=== PATIENT | male | born 1985 | race Caucasian/White ===

== ENCOUNTER 2018-01-24 21:08 | Emergency (ER) | payer BC ==
[2018-01-24 21:19] VITALS: RESP 18
[2018-01-24] MEDS ORDERED: FAMOTIDINE 20 MG TAB PO STA (21:35)
[2018-01-24] MEDS ORDERED: predniSONE 50 MG TAB PO STA (21:35)
--- NOTE | 2018-01-24 21:46 | ED ---
Skin/Abscess/FB HPI - General Chief complaint: Skin/Abscess/Foreign Body Stated complaint: rash Time Seen by Provider: 01/24/18 21:29 Source: patient, RN notes reviewed Mode of arrival: ambulatory Limitations: no limitations - History of Present Illness Initial comments: This is a 32-year-old male who presents to the emergency department with chief complaint of rash. Patient states that he developed a rash on his right wrist in September. He states that he has been using topical moisturizers because he contributed it to dry skin. Patient states that a couple days ago he developed a rash under both of his eyes. Tonight the rash began to cover his arms and his chest. He states that he took a Benadryl prior to arrival and has been applying cortisone topically. Patient states that the rash is pruritic. Denies any new body lotions, fragrances, laundry detergents or medications. He states that she got a new pair of work gloves in September and thought that that may be the cause. Denies fever, chills, chest pain, shortness of breath, abdominal pain, nausea or vomiting, constipation or diarrhea, dysuria or hematuria, numbness or tingling, headache or vision changes. - Related Data Home Medications Medication Instructions Recorded Confirmed [id number] 1 tab PO Q4HR PRN 06/27/16 08/30/16 [Excedrin] Mylanta 10 ml PO DAILY PRN 06/29/16 08/30/16 Famotidine [Pepcid] 20 mg PO DAILY 07/29/16 08/30/16 Aspirin EC [Ecotrin Low Dose] 81 mg PO DAILY PRN 08/30/16 08/30/16 Previous Rx's Medication Instructions Recorded Famotidine [Pepcid] 20 mg PO BID #8 tablet 01/24/18 predniSONE 20 mg PO BID #8 tab 01/24/18 Allergies Allergy/AdvReac Type Severity Reaction Status Date / Time Penicillins AdvReac Nausea & Verified 01/24/18 21:19 Vomiting Review of Systems ROS Statement: Those systems with pertinent positive or pertinent negative responses have been documented in the HPI. ROS Other: All systems not noted in ROS Statement are negative. Past Medical History Past Medical History: Chest Pain / Angina, GERD/Reflux Additional Past Medical History / Comment(s): chest pain and recently diagnosed with GERD History of Any Multi-Drug Resistant Organisms: None Reported Past Surgical History: Ear Surgery Additional Past Surgical History / Comment(s): Bilateral ear tubes, nasal passage surgery (flushed) Past Anesthesia/Blood Transfusion Reactions: Motion Sickness Past Psychological History: No Psychological Hx Reported Smoking Status: Never smoker Past Alcohol Use History: Occasional Past Drug Use History: None Reported - Past Family History Mother Family Medical History: Diabetes Mellitus Father History Unknown: Yes General Exam - General Exam Comments Initial Comments: General: Awake and alert, well-developed; in no apparent distress. HEENT: Head atraumatic, normocephalic. Pupils are equal, round and reactive to light. Extraocular movements intact. Oropharynx moist without erythema or exudate. Neck: Supple. Normal ROM. Cardiovascular: Regular rate and rhythm. No murmurs, rubs or gallops. Chest symmetrical. Respiratory: Lungs clear to auscultation bilaterally. No wheezes, rales or rhonchi. Normal respiratory effort with no use of accessory muscles. Musculoskeletal: Normal ROM, no tenderness bilateral upper and lower extremities. Ambulating normally. Skin: [place], warm and dry. Dry, erythematous maculopapular lesions covering bilateral arms, chest and infraorbital area. Overlying excoriations noted to erythematous rash on right dorsal wrist. Neurological: Alert and oriented x3. CN II-XII grossly intact. Speech is fluent and answers are appropriate. No focal neuro deficits. Psychiatric: Normal mood and affect. No overt signs of depression or anxiety noted. Limitations: no limitations Course Vital Signs 01/24/18 21:16 Temperature 97.5 F L Pulse Rate 77 Respiratory 18 Rate Blood Pressure 161/94 O2 Sat by Pulse 98 Oximetry Medical Decision Making - Medical Decision Making This is a 32-year-old male who presents to the emergency department with chief complaint of rash. Patient's rash started on his right wrist in September and has recently spread to his arms, chest and under his eyes. He has been using topical cortisone cream and Benadryl. Rash appears eczematous. Patient was given a dose of prednisone and Pepcid while in the emergency department. He admits to taking a dose of Benadryl prior to arrival. Patient is in no acute distress and will be discharged home. He will be given prescriptions for prednisone and Pepcid. I educated patient to avoid long, hot showers. He may use cortisone cream but I advised against applying to the rash under eyes as steroid creams can cause stretch prado and thinning of the skin. Recommended follow-up with his primary care provider in 1-2 days. Patient is in agreement with plan and voices understanding. All questions were answered. Disposition Clinical Impression: Dermatitis Disposition: HOME SELF-CARE Condition: Good Instructions: Eczema (ED), Dermatitis (ED) Additional Instructions: Please take medications as prescribed. Please avoid long, hot showers. May apply a thick cream moisturizer. Avoid using topical steroids on the face. Please follow up with primary care provider within 1-2 days. Return to emergency department if symptoms should worsen or any concerns arise. Prescriptions: Famotidine [Pepcid] 20 mg PO BID #8 tablet predniSONE 20 mg PO BID #8 tab Referrals: None,Stated [Primary Care Provider] - 1-2 days Time of Disposition: 22:02
[2018-01-24 22:09] VITALS: BP 136/76; PULSE 76; TEMP 97.9
== END 2018-01-24 22:08 | disposition home or self-care (01) ==
LOC: EC 21:08
DX: L30.9 Dermatitis, unspecified (principal); K21.9 Gastro-esophageal reflux disease without esophagitis; Z79.899 Other long term (current) drug therapy; Z88.0 Allergy status to penicillin
CPT/HCPCS: 99282; J7512

== ENCOUNTER 2019-09-09 09:02 | Emergency (ER) | payer BC ==
[2019-09-09 09:14] VITALS: RESP 18
[2019-09-09] MEDS ORDERED: ASPIRIN 81 MG PO STA (10:01)
[2019-09-09] MEDS ORDERED: NITROGLYCERIN SL TABS 0.4 MG TAB SUBLINGUAL STA (10:01)
[2019-09-09 10:12] LABS: Basophils % (A) 1 %; Eosinophils # (A) 0.1 k/uL (0-0.7); Eosinophils % (A) 2 %; HCT 43.9 % (39.0-53.0); HGB 14.3 gm/dL (13.0-17.5); Lymphocytes # (A) 1.4 k/uL (1.0-4.8); Lymphocytes % (A) 24 %; MCH 28.2 pg (25.0-35.0); MCHC 32.5 g/dL (31.0-37.0); MCV 86.7 fL (80.0-100.0); Mean Platelet Volume 6.8; Monocytes # (A) 0.3 k/uL (0-1.0); Monocytes % (A) 5 %; Neutrophils # (A) 3.9 k/uL (1.3-7.7); Neutrophils % (A) 66 %; Platelet Count 328 k/uL (150-450); RBC 5.07 m/uL (4.30-5.90); RDW 13.6 % (11.5-15.5); WBC 5.9 k/uL (3.8-10.6)
[2019-09-09 10:24] LABS: ALT 44 U/L (21-72); AST 27 U/L (17-59); African American GFR (CKD) >90 (>60 ml/min/1.73 sqM); Albumin 4.7 g/dL (3.5-5.0); Alkaline Phosphatase 68 U/L (38-126); Anion Gap 8 mmol/L; Blood Urea Nitrogen 18 mg/dL (9-20); Calcium 9.9 mg/dL (8.4-10.2); Carbon Dioxide 27 mmol/L (22-30); Chloride 107 mmol/L (98-107); Glucose 100 mg/dL (74-99); Magnesium 2.1 mg/dL (1.6-2.3); Sodium 142 mmol/L (137-145); Total Bilirubin 0.4 mg/dL (0.2-1.3); Total Protein 7.9 g/dL (6.3-8.2)
[2019-09-09 10:27] LABS: D-Dimer 0.43 mg/L FEU (<0.60); INR 0.9 (<1.2); Partial Thromboplastin Time 22.9 sec (22.0-30.0); Prothrombin Time 9.7 sec (9.0-12.0)
--- NOTE | 2019-09-09 10:28 | XR ---
EXAMINATION TYPE: XR chest 2V DATE OF EXAM: 09/09/2019 COMPARISON: 07/29/2016 HISTORY: Chest pain TECHNIQUE: Frontal and lateral views of the chest are obtained. FINDINGS: There is no focal air space opacity, pleural effusion, or pneumothorax seen. The cardiac silhouette size is upper limits of normal, similar to the prior exam. The osseous structures are in tact. IMPRESSION: No acute cardiopulmonary process.
--- NOTE | 2019-09-09 10:46 | ED ---
Chest Pain HPI - General Chief Complaint: Chest Pain Stated Complaint: LEFT FLANK PAIN/CHEST PAIN Time Seen by Provider: 09/09/19 09:15 Source: patient Mode of arrival: ambulatory Limitations: no limitations - History of Present Illness Initial Comments: The patient is a 33-year-old male presents to the emergency room with reported chest pain for the past week. He describes it as a left-sided chest wall pain without radiation. It is painful to palpation. Denies ripping or tearing sensation to his back. No associated shortness of breath or cough. Does admit to feeling mildly nauseated without vomiting. No hemoptysis. No chest wall trauma. Denies a family history of cardiac disease. No history of DVT or PE. The patient did recently travel to [place] for his [email or web address]. States the pain was present prior to travel. Denies calf pain or swelling. Denies any fevers or chills. No recent upper respiratory infections. No neck pain. Denies back or flank pain. No pain into his lower extremities. No changes in bowel or bladder habits. There are no other alleviating, precipitating or modifying factors - Related Data Home Medications Medication Instructions Recorded Confirmed Esomeprazole Magnesium [NexIUM] 40 mg PO DAILY 09/09/19 09/09/19 Ibuprofen [Motrin Ib] 400 - 600 mg PO Q6H PRN 09/09/19 09/09/19 Allergies Allergy/AdvReac Type Severity Reaction Status Date / Time orange AdvReac Unknown Verified 09/09/19 09:55 Penicillins AdvReac Nausea & Verified 09/09/19 09:55 Vomiting Review of Systems ROS Statement: Those systems with pertinent positive or pertinent negative responses have been documented in the HPI. ROS Other: All systems not noted in ROS Statement are negative. EKG Findings - EKG Comments: EKG Findings:: EKG demonstrates normal sinus rhythm with a ventricular rate of 76. MA interval 158. QRS 102. QTC 407. There is an inverted T-wave in lead 3. J-point elevation in 1 and aVL. This compared to patient's previous EKG and appears the same. Past Medical History Past Medical History: Chest Pain / Angina, GERD/Reflux Additional Past Medical History / Comment(s): chest pain and recently diagnosed with GERD History of Any Multi-Drug Resistant Organisms: None Reported Past Surgical History: Ear Surgery Additional Past Surgical History / Comment(s): Bilateral ear tubes, nasal passage surgery (flushed) Past Anesthesia/Blood Transfusion Reactions: Motion Sickness Past Psychological History: No Psychological Hx Reported Smoking Status: Never smoker Past Alcohol Use History: Occasional Past Drug Use History: None Reported - Past Family History Mother Family Medical History: Diabetes Mellitus Father History Unknown: Yes General Exam Limitations: no limitations Course Vital Signs 09/09/19 09/09/19 09:11 11:25 Temperature 98.0 F 97.7 F Pulse Rate 73 72 Respiratory 18 18 Rate Blood Pressure 117/73 122/70 O2 Sat by Pulse 96 99 Oximetry Chest Pain MDM - MDM Upon arrival the patient was placed in room 5. A history of physical exam is performed. A 12-lead EKG was performed which demonstrated normal sinus rhythm. I did recommend laboratory studies and a chest x-ray. Laboratory studies demonstrated a d-dimer of 0.43. CBC and CMP were unremarkable troponin is negative. Chest x-ray demonstrates no acute cardiac process. I did reevaluate the patient and informed him of the results. At this time the patient will be discharged home and is to follow-up with his primary care physician. Patient does not have one and therefore I did provide him with the name of her primary care physician. I also gave him referrals to [facility]. I informed him that he will need Holter monitoring and echo with her. The patient has any new or worsening symptoms she should return to the emergency room. The patient was discharged home in stable condition Disposition Clinical Impression: Chest pain Disposition: HOME SELF-CARE Condition: Stable Instructions (If sedation given, give patient instructions): Chest Pain (ED) Additional Instructions: I recommend you follow up with the primary care physician or the [facility] office for a complete cardiac workup. You will need an ultrasound of your heart as well as Holter monitoring. Return to the emergency room for any new or worsening symptoms Is patient prescribed a controlled substance at d/c from ED?: No Referrals: None,Stated [Primary Care Provider] - 1-2 days Belinda Ott MD [Medical Doctor] - 1-2 days [facility] [Provider Group] - 1-2 days Time of Disposition: 11:12
[2019-09-09 11:28] VITALS: BP 122/70; PULSE 72; TEMP 97.7
== END 2019-09-09 11:33 | disposition home or self-care (01) ==
LOC: EC 09:02
DX: R07.89 Other chest pain (principal); R11.0 Nausea; K21.9 Gastro-esophageal reflux disease without esophagitis; I20.9 Angina pectoris, unspecified; Z79.899 Other long term (current) drug therapy; Z88.0 Allergy status to penicillin; Z91.013 Allergy to seafood
CPT/HCPCS: 36415; 71046; 80053; 83690; 83735; 83880; 84484; 85025; 85379; 85610; 85730; 99285

== ENCOUNTER → 2023-02-09 | Outpatient (CLI) | payer BC ==
--- NOTE | 2023-02-09 19:15 | CT ---
EXAMINATION TYPE: CT ankle LT wo con CT DLP: 187.1 mGycm, Automated exposure control for dose reduction was used. DATE OF EXAM: 02/09/2023 5:34 PM COMPARISON: . None CLINICAL INDICATION:Male, 37 years old with history of Q66.89 M89.8X7 M25.572; H, left ankle injury x 15 years ago. recent pain. TECHNIQUE: Axial images were obtained of the left ankle . Additional coronal and sagittal reformatte d images and soft tissue and bone window were obtained for review. 3-D reconstruction was created on a separate workstation. Contrast used: None Oral contrast used: None FINDINGS: No evidence of acute fracture. There is a prominent posterior process of the talus with sim ilar deformity of the posterior process and posterior tibial plafond small osteophyte formation. Russ tional anterior talus osteophyte with degeneration changes of the adjoining navicular as well. Additi onal scattered degeneration changes throughout the midfoot intertarsal joints. The talus and tibial p alysia and appear congruent and intact without evidence for osteochondral defect of the talar dome. N o evidence of fracture or significant soft tissue swelling. IMPRESSION: 1. Deformity of the posterior tibial plafond and posterior process of the talus correlate for pocket marker ior impingement, consider MRI for complete evaluation.. 2. Moderate osteoarthrosis changes of the joints of the foot most pronounced at the talonavicular jarad int.
== END | disposition home or self-care (01) ==
LOC: RADCTMAIN 17:09
PROVIDERS: ATTEND Podiatrist
DX: M19.072 Primary osteoarthritis, left ankle and foot (principal); Q66.89 Other specified congenital deformities of feet; M89.8X7 Other specified disorders of bone, ankle and foot; M25.572 Pain in left ankle and joints of left foot

== ENCOUNTER → 2023-09-18 | Outpatient (CLI) | payer BC ==
--- NOTE | 2023-09-18 20:31 | XR ---
EXAMINATION TYPE: XR wrist complete LT DATE OF EXAM: 09/18/2023 4:48 PM CLINICAL INDICATION:Male, 37 years old with history of M25.532 LEFT WRIST PAIN; [facility] COMPARISON: None TECHNIQUE: left wrist was examined in the. Frontal, navicular, lateral, and oblique. FINDINGS: No acute osseous pathology, joint dislocation, or joint effusion. No evidence of any soft tissue swelling is seen. IMPRESSION: No acute osseous pathology.
== END | disposition home or self-care (01) ==
LOC: RADXRMAIN 16:30
PROVIDERS: ATTEND Family Medicine
DX: M25.532 Pain in left wrist (principal)

== ENCOUNTER 2024-09-09 13:35 | Emergency (ER) | payer BC ==
[2024-09-09 13:43] VITALS: RESP 18
--- NOTE | 2024-09-09 15:05 | ED ---
General Adult HPI - General Source: patient, RN notes reviewed, old records reviewed Mode of arrival: ambulatory Limitations: no limitations <Gordon Escalante - Last Filed: 09/09/24 15:51> <Keyana Jean Baptiste - Last Filed: 09/10/24 00:45> - General Chief complaint: Abdominal Pain Stated complaint: abd pain Time Seen by Provider: 09/09/24 14:07 - History of Present Illness Initial comments: 38-year-old male presents for evaluation of right lower quadrant pain over the past several days. Patient has had poor appetite. No fever. No vomiting or diarrhea. No urinary symptoms. Patient was seen at urgent care and sent to the emergency department with concern for appendicitis. (Gordon Escalante) - Related Data Home Medications Medication Instructions Recorded Confirmed Celecoxib [CeleBREX] 200 mg PO HS 09/09/24 09/09/24 Cholecalciferol (Vitamin D3) 1,250 mcg PO TU 09/09/24 09/09/24 [Vitamin D3 (1250 Mcg = 50,000 Iu)] Esomeprazole Magnesium [NexIUM 20 mg PO DAILY 09/09/24 09/09/24 24Hr] Ferrous Sulfate [Feosol] 325 mg PO HS 09/09/24 09/09/24 Multivitamins, Thera [Multivitamin 1 tab PO HS 09/09/24 09/09/24 (formulary)] Nebivolol [Bystolic] 5 mg PO HS 09/09/24 09/09/24 Allergies Allergy/AdvReac Type Severity Reaction Status Date / Time orange AdvReac Unknown Verified 09/09/24 18:07 Penicillins AdvReac Nausea & Verified 09/09/24 18:07 Vomiting Review of Systems ROS Other: All systems not noted in ROS Statement are negative. <Gordon Escalante - Last Filed: 09/09/24 15:51> ROS Other: All systems not noted in ROS Statement are negative. <Keyana Jean Baptiste - Last Filed: 09/10/24 00:45> ROS Statement: Those systems with pertinent positive or pertinent negative responses have been documented in the HPI. Past Medical History Past Medical History: Chest Pain / Angina, GERD/Reflux Additional Past Medical History / Comment(s): chest pain and recently diagnosed with GERD History of Any Multi-Drug Resistant Organisms: None Reported Past Surgical History: Ear Surgery Additional Past Surgical History / Comment(s): Bilateral ear tubes, nasal passage surgery (flushed) Past Anesthesia/Blood Transfusion Reactions: Motion Sickness Past Psychological History: No Psychological Hx Reported Smoking Status: Never smoker Past Alcohol Use History: Occasional Past Drug Use History: None Reported - Past Family History Mother Family Medical History: Diabetes Mellitus Father History Unknown: Yes <Gordon Escalante - Last Filed: 09/09/24 15:51> General Exam Limitations: no limitations General appearance: alert, in no apparent distress Head exam: Present: atraumatic, normocephalic Eye exam: Present: normal appearance, PERRL ENT exam: Present: normal exam Neck exam: Present: normal inspection Respiratory exam: Present: normal lung sounds bilaterally. Absent: respiratory distress, wheezes Cardiovascular Exam: Present: regular rate, normal rhythm GI/Abdominal exam: Present: soft, tenderness (Right lower quadrant). Absent: distended Extremities exam: Present: normal inspection Neurological exam: Present: alert, oriented X3 Psychiatric exam: Present: normal affect, normal mood Skin exam: Present: warm, dry, intact. Absent: cyanosis, diaphoretic <Gordon Escalante - Last Filed: 09/09/24 15:51> Course Vital Signs 09/09/24 09/09/24 09/09/24 13:40 18:45 20:15 Temperature 98.4 F 98.2 F 98.0 F Pulse Rate 76 71 68 Respiratory 18 18 18 Rate Blood Pressure 145/72 129/84 151/102 O2 Sat by Pulse 99 100 100 Oximetry Medical Decision Making - Lab Data Result diagrams: 09/09/24 14:41 <Gordon Escalante - Last Filed: 09/09/24 15:51> - Lab Data Result diagrams: 09/09/24 14:41 09/09/24 16:21 <Keyana Jean Baptiste - Last Filed: 09/10/24 00:45> - Medical Decision Making Was pt. sent in by a medical professional or institution (, PA, CO FOUNDER, urgent care, hospital, or group home...) When possible be specific @ -No Did you speak to anyone other than the patient for history (EMS, parent, family, police, friend...)? What history was obtained from this source @ -No Did you review nursing and triage notes (agree or disagree)? Why? @ -I reviewed and agree with nursing and triage notes Were old charts reviewed (outside hosp., previous admission, EMS record, old EKG, old radiological studies, urgent care reports/EKG's, group home records)? Report findings @ -No old charts were reviewed Differential Abdominal Pain Men: Appendicitis, cholecystitis, diverticulosis, ischemic bowel, pancreatitis, hepatitis, UTI, gastroenteritis, AAA, incarcerated hernia, bowel obstruction, constipation, inflammatory bowel, hepatitis, peptic ulcer disease, splenic infarction, perforated viscus, testicular torsion, this is not meant to be an all-inclusive list EKG interpreted by me (3pts min.). @ -As above X-rays interpreted by me (1pt min.). @ -None done CT interpreted by me (1pt min.). @ -[CT of the pelvis has been ordered, results pending U/S interpreted by me (1pt. min.). @ -None done What testing was considered but not performed or refused? (CT, X-rays, U/S, labs)? Why? @ -None What meds were considered but not given or refused? Why? @ -None Did you discuss the management of the patient with other professionals (professionals i.e. , PA, CO FOUNDER, lab, RT, psych nurse, social work supervisor, jewel staker, teacher, optics technical officer, lead case manager)? Give summary @ -No Was smoking cessation discussed for >3mins.? @ -No Was critical care preformed (if so, how long)? @ -No Were there social determinants of health that impacted care today? How? (Homele ssness, low income, unemployed, alcoholism, drug addiction, transportation, low edu. Level, literacy, decrease access to med. care, nursing home, rehab)? @ -No Was there de-escalation of care discussed even if they declined (Discuss DNR or withdrawal of care, Hospice)? DNR status @ -No What co-morbidities impacted this encounter? (DM, HTN, Smoking, COPD, CAD, Cancer, CVA, ARF, Chemo, Hep., AIDS, mental health diagnosis, sleep apnea, morbid obesity)? @ -None Was patient admitted / discharged? Hospital course, mention meds given and route, prescriptions, significant lab abnormalities, going to OR and other pertinent info. @ -[Care signed out to Dr. Jean Baptiste at shift change awaiting CT imaging results and reevaluation. (Gordon Escalante) Was patient admitted / discharged? Hospital course, mention meds given and route, prescriptions, significant lab abnormalities, going to OR and other pertinent info. @ -Patient signed out to me pending CT. CT was performed and read as negative for acute process. Patient does have a right-sided renal stone. He does have some blood in his urine. These results are discussed with patient. At this time his pain is controlled. He will be discharged home and instructed follow- up with his primary care doctor. I do recommend urology follow-up for his renal stone. Take Tylenol and Motrin for pain. Return for any new or worsening symptoms. Patient agreeable to plan was discharged in stable condition Undiagnosed new problem with uncertain prognosis? @ -Yes Drug Therapy requiring intensive monitoring for toxicity (Heparin, Nitro, Insulin, Cardizem)? @ -[No] Were any procedures done? @ -No Diagnosis/symptom? @ -Acute right lower quadrant abdominal pain, right sided renal stone, hematuria Acute, or Chronic, or Acute on Chronic? @ -Acute Uncomplicated (without systemic symptoms) or Complicated (systemic symptoms)? @ -Complicated Side effects of treatment? @ -No Exacerbation, Progression, or Severe Exacerbation? @ -No Poses a threat to life or bodily function? How? (Chest pain, [place], [place], pneumonia, PE, COPD, DKA, ARF, appy, cholecystitis, CVA, Diverticulitis, Homicidal, Suicidal, threat to staff... and all critical care pts) @ -No (Keyana Jean Baptiste) - Lab Data Lab Results 09/09/24 09/09/24 09/09/24 Range/Units 14:41 14:41 14:41 WBC 11.1 H (3.8-10.6) k/uL RBC 5.19 (4.30-5.90) m/uL Hgb 15.4 (13.0-17.5) gm/dL Hct 45.6 (39.0-53.0) % MCV 87.8 (80.0-100.0) fL MCH 29.6 (25.0-35.0) pg MCHC 33.7 (31.0-37.0) g/dL RDW 13.7 (11.5-15.5) % Plt Count 286 (150-450) k/uL MPV 8.2 Neutrophils % 84 % Lymphocytes % 9 % Monocytes % 6 % Eosinophils % 0 % Basophils % 0 % Neutrophils # 9.3 H (1.3-7.7) k/uL Lymphocytes # 1.0 (1.0-4.8) k/uL Monocytes # 0.6 (0-1.0) k/uL Eosinophils # 0.0 (0-0.7) k/uL Basophils # 0.0 (0-0.2) k/uL PT 9.9 L (10.0-12.5) sec INR 0.9 (<1.2) APTT 20.9 L (22.0-30.0) sec Sodium (137-145) mmol/L Potassium (3.5-5.1) mmol/L Chloride (98-107) mmol/L Carbon Dioxide (22-30) mmol/L Anion Gap mmol/L BUN (9-20) mg/dL Creatinine (0.66-1.25) mg/dL Est GFR (CKD-EPI)AfAm (>60 ml/min/1.73 sqM) Est GFR (CKD-EPI)NonAf (>60 ml/min/1.73 sqM) Glucose (74-99) mg/dL Plasma Lactic Acid Yogesh 1.0 (0.7-2.0) mmol/L Calcium (8.4-10.2) mg/dL Total Bilirubin (0.2-1.3) mg/dL AST (17-59) U/L ALT (4-49) U/L Alkaline Phosphatase (38-126) U/L Total Protein (6.3-8.2) g/dL Albumin (3.5-5.0) g/dL Lipase (23-300) U/L Urine Color Urine Appearance (Clear) Urine pH (5.0-8.0) Ur Specific [place] (1.001-1.035) Urine Protein (Negative) Urine Glucose (UA) (Negative) Urine Ketones (Negative) Urine Blood (Negative) Urine Nitrite (Negative) Urine Bilirubin (Negative) Urine Urobilinogen (<2.0) mg/dL Ur Leukocyte Esterase (Negative) Urine RBC (0-5) /hpf Urine WBC (0-5) /hpf Ur Squamous Epith Cells (0-4) /hpf Hyaline Casts (0-2) /lpf Urine Mucus (None) /hpf 09/09/24 09/09/24 Range/Units 16:21 16:48 WBC (3.8-10.6) k/uL RBC (4.30-5.90) m/uL Hgb (13.0-17.5) gm/dL Hct (39.0-53.0) % MCV (80.0-100.0) fL MCH (25.0-35.0) pg MCHC (31.0-37.0) g/dL RDW (11.5-15.5) % Plt Count (150-450) k/uL MPV Neutrophils % % Lymphocytes % % Monocytes % % Eosinophils % % Basophils % % Neutrophils # (1.3-7.7) k/uL Lymphocytes # (1.0-4.8) k/uL Monocytes # (0-1.0) k/uL Eosinophils # (0-0.7) k/uL Basophils # (0-0.2) k/uL PT (10.0-12.5) sec INR (<1.2) APTT (22.0-30.0) sec Sodium 144 (137-145) mmol/L Potassium 4.9 (3.5-5.1) mmol/L Chloride 106 (98-107) mmol/L Carbon Dioxide 29 (22-30) mmol/L Anion Gap 9 mmol/L BUN 22 H (9-20) mg/dL Creatinine 0.92 (0.66-1.25) mg/dL Est GFR (CKD-EPI)AfAm >90 (>60 ml/min/1.73 sqM) Est GFR (CKD-EPI)NonAf >90 (>60 ml/min/1.73 sqM) Glucose 95 (74-99) mg/dL Plasma Lactic Acid Yogesh (0.7-2.0) mmol/L Calcium 9.9 (8.4-10.2) mg/dL Total Bilirubin 0.6 (0.2-1.3) mg/dL AST 33 (17-59) U/L ALT 39 (4-49) U/L Alkaline Phosphatase 45 (38-126) U/L Total Protein 7.4 (6.3-8.2) g/dL Albumin 4.7 (3.5-5.0) g/dL Lipase 91 (23-300) U/L Urine Color Yellow Urine Appearance Clear (Clear) Urine pH 5.0 (5.0-8.0) Ur Specific [place] 1.032 (1.001-1.035) Urine Protein Trace H (Negative) Urine Glucose (UA) Negative (Negative) Urine Ketones 1+ H (Negative) Urine Blood Small H (Negative) Urine Nitrite Negative (Negative) Urine Bilirubin Negative (Negative) Urine Urobilinogen <2.0 (<2.0) mg/dL Ur Leukocyte Esterase Negative (Negative) Urine RBC 33 H (0-5) /hpf Urine WBC 1 (0-5) /hpf Ur Squamous Epith Cells <1 (0-4) /hpf Hyaline Casts 1 (0-2) /lpf Urine Mucus Moderate H (None) /hpf Disposition <Gordon Escalante - Last Filed: 09/09/24 15:51> Is patient prescribed a controlled substance at d/c from ED?: No Time of Disposition: 20:11 <Keyana Jean Baptiste - Last Filed: 09/10/24 00:45> Clinical Impression: Abdominal pain, Hematuria, Renal stone Disposition: HOME SELF-CARE Condition: Stable Instructions (If sedation given, give patient instructions): Abdominal Pain (ED) Additional Instructions: Please follow-up with the urologist for your renal stones. Return for any new or worsening symptoms Referrals: Mauri Cooney DO [Primary Care Provider] - 1-2 days Riley Simon MD [STAFF PHYSICIAN] - 1-2 days
[2024-09-09 15:28] LABS: INR 0.9 (<1.2); Partial Thromboplastin Time 20.9 sec (22.0-30.0); Prothrombin Time 9.9 sec (10.0-12.5)
[2024-09-09 15:42] LABS: Basophils % (A) 0 %; Eosinophils % (A) 0 %; HCT 45.6 % (39.0-53.0); HGB 15.4 gm/dL (13.0-17.5); Lymphocytes % (A) 9 %; MCH 29.6 pg (25.0-35.0); MCHC 33.7 g/dL (31.0-37.0); MCV 87.8 fL (80.0-100.0); Mean Platelet Volume 8.2; Monocytes # (A) 0.6 k/uL (0-1.0); Monocytes % (A) 6 %; Neutrophils # (A) 9.3 k/uL (1.3-7.7); Neutrophils % (A) 84 %; Platelet Count 286 k/uL (150-450); RBC 5.19 m/uL (4.30-5.90); RDW 13.7 % (11.5-15.5); WBC 11.1 k/uL (3.8-10.6)
[2024-09-09 16:53] LABS: ALT 39 U/L (4-49); AST 33 U/L (17-59); African American GFR (CKD) >90 (>60 ml/min/1.73 sqM); Albumin 4.7 g/dL (3.5-5.0); Alkaline Phosphatase 45 U/L (38-126); Anion Gap 9 mmol/L; Blood Urea Nitrogen 22 mg/dL (9-20); Calcium 9.9 mg/dL (8.4-10.2); Carbon Dioxide 29 mmol/L (22-30); Chloride 106 mmol/L (98-107); Glucose 95 mg/dL (74-99); Lipase 91 U/L (23-300); Non-African American GFR(CKD) >90 (>60 ml/min/1.73 sqM); Potassium 4.9 mmol/L (3.5-5.1); Sodium 144 mmol/L (137-145); Total Bilirubin 0.6 mg/dL (0.2-1.3); Total Protein 7.4 g/dL (6.3-8.2)
[2024-09-09 16:59] LABS: Appearance,Urine Clear (Clear); Bilirubin,Urine Negative (Negative); Blood,Urine Small (Negative); Color,Urine Yellow; Glucose,Urine (UA) Negative (Negative); Hyaline Casts,Urine 1 /lpf (0-2); Ketones,Urine 1+ (Negative); Leukocyte Esterase,Urine Negative (Negative); Mucus,Urine Moderate /hpf; Nitrite,Urine Negative (Negative); Protein,Urine Trace (Negative); RBC,Urine 33 /hpf (0-5); Specific Gravity,Urine 1.032 (1.001-1.035); Squamous Epithelial Cell,Urine <1 /hpf (0-4); Urobilinogen,Urine <2.0 mg/dL (<2.0); WBC,Urine 1 /hpf (0-5)
--- NOTE | 2024-09-09 19:55 | CT ---
EXAMINATION TYPE: CT abdomen pelvis w con CT DLP: 2829.4 mGycm, Automated exposure control for dose reduction was used. DATE OF EXAM: 09/09/2024 5:31 PM COMPARISON: None. CLINICAL INDICATION:Male, 38 years old with history of RLQ pain; RLQ pain TECHNIQUE: Axial CT of the abdomen and pelvis. Sagittal and coronal reformats were created on a [employer] workstation. Contrast used:100ml mL of Isovue 300 with IV Contrast, (none if empty) Oral contrast used: without Oral Contrast (none if empty) FINDINGS: LOWER CHEST: Mild circumferential distal esophageal wall thickening suggested, could be seen with eso phagitis. There are lung bases. ABDOMEN LIVER: Unremarkable GALLBLADDER AND BILE DUCTS: Unremarkable gallbladder. No biliary ductal dilatation. PANCREAS: Unremarkable. SPLEEN: Unremarkable. ADRENAL GLANDS: Unremarkable. KIDNEYS AND URETERS: Kidneys enhance symmetrically. No evidence of hydronephrosis. 6 mm nonobstructin g right renal calculus. The ureters are unremarkable. Tiny cyst suggested in the lower pole left kidn ey. PELVIS BLADDER: Incompletely distended but grossly unremarkable. REPRODUCTIVE: Unremarkable. ABDOMEN & PELVIS STOMACH AND BOWEL: Stomach and small bowel are nondistended, no evidence of obstruction. The append ix appears within normal limits. There is a small ovoid calcification in the right lower quadrant whi ch appears outside the appendix, consistent with granuloma or calcified node, not appendicolith. The re is some stool and gas seen throughout the colon with no focal acute abnormality shown. There may b e scattered tiny diverticula, but no signs of diverticulitis. PERITONEUM/RETROPERITONEUM: No eviden ce of pneumoperitoneum or free fluid. VASCULATURE: Aorta and major branches are grossly unremarkable. No AAA. Portal veins are enhancing. Splenic vein is patent. LYMPH NODES: No enlarged nodes by CT size criteria. SOFT TISSUE/ABDOMINAL WALL: Nothing acute. Small fat-containing left inguinal and umbilical hernias. MUSCULOSKELETAL: No acute osseous abnormalities. Mild/moderate disc degeneration changes are present throughout the thoracolumbar spine. IMPRESSION: 1. No acute abnormality in the abdomen or pelvis. 2. Appendix appears within normal limits. 3. Other chronic and likely incidental findings, as described above. [facility], , 09/09/2024 7:53 PM
[2024-09-09 20:21] VITALS: BP 151/102; PULSE 68; TEMP 98
== END 2024-09-09 20:21 | disposition home or self-care (01) ==
LOC: EC 13:35
CPT/HCPCS: 36415; 74177; 80053; 81001; 83605; 83690; 85025; 85610; 85730; 99284